=== PATIENT | male | born 1980 | race Caucasian/White ===

== ENCOUNTER 2024-10-18 07:17 | Emergency (ER) | payer OTHER, SELFPAY ==
[2024-10-18] VITALS (7 sets, daily range): BP systolic 106–127; BP diastolic 57–96; BMI 28.0
--- NOTE | 2024-10-18 07:58 | ED.GENMED ---
History of Present Illness
<Kennedi Guerrier PA-C - Last Filed: 10/18/24 11:29>
General
Chief Complaint: Back Pain
Source: patient
Exam Limitations: none
Time Seen by Provider: 10/18/24 07:33
Nursing documentation reviewed up to this point in time: agreed with
History of Present Illness
History of Present Illness:
44 y/o M no sig pmh
here with severe lumbar back pain this morning and subsequent syncope
pt says last week he tweaked his back liftingsomething; has been having lower lumbar pain with changing positino, walking
nonradiating, no numbness/tingling/weakness
taking motrin OTC
then this morning went to get out of b ed and suddenly felt severe pain in the back, screamed; went over to help him and he passed out, landing on the buttocks and also bumped his head onthe nightstand without injury
his eyes were opena nd he then was diaphoretic
he had no CP, SOB
he denies abd pain
the pain is worse with changing position/worse wiht movement; but nonradiating, normal sesnation, no urinary incontnience or perineal anesthesia
his was able to get him slowly up and to the car and was able to walk in
he took aleve [employer]
pain is moderate to severe worse with movement
no fever/chills
no h/o aortic disease
has passed out before but rarely
has low resting hr usually
Past History
<Kennedi Guerrier PA-C - Last Filed: 10/18/24 11:29>
Past History
ED Past Medical History: None
ED Past Surgical History: None
Social History
Tobacco: Non-smoker
Alcohol: Occasional
Drug: None
Personal:
Living: with family
Employment: Employed
Review of Systems
<Kennedi Guerrier PA-C - Last Filed: 10/18/24 11:29>
Review of Systems
Allergies reviewed?: Yes
All Other Systems: Not applicable
Phy Exam
<Kennedi Guerrier PA-C - Last Filed: 10/18/24 11:29>
Physical Exam
Physical Exam:
GENERAL: Alert ,ucomfortable; better with lying still; pain with movement; eyes closed during interview
HEAD: NCAT
NECK: no midline tenderness, active ROM intact, no paraspinal muscle tenderness;
CARDIAC: Regular rate and rhythm, no edema
LUNGS: Clear breath sounds bilaterally, no acute respiratory distress, no wheezes/rales/rhonchi
ABDOMEN: Soft, without focal tenderness, no r/g, no cvat, normal bowel sounds, nondistended
NEUROLOGICAL: Alert and oriented, no focal neuro deficits, CN intact, 5/5 strength, sensation intact, ambulation slight limp left leg
SKIN: Warm and dry,
MUSCULOSKELETAL: No edema, well perfused.
Patient has no tenderness to palpatino of hips and SI joints
Back: No midline tenderness, no paraspinal muscle tenderness on exam, no swelling
negative straight leg raise Bilaterally
pain with changing psoitions int he stretcher, flexion and rotation;
PSYCH: Normal and appropriate interaction.
Course
<Kennedi Guerrier PA-C - Last Filed: 10/18/24 11:29>
Orders/Labs/Results
Orders:
Orders
10/18/24 07:25
Electrocardiogram (*1) Urgent
Reason for Study: Syncope
EKG- Treatment ONCE
10/18/24 07:54
CT Angio Abd/Pelvis w/wo IV [CT Abd/pelvis Angio W/wo Iv] Urgent
Comment:
Reason For Exam: severe back pain, syncope
10/18/24 07:58
HYDROmorphone [Dilaudid] 0.5 mg IV NOW STA
10/18/24 08:00
Complete Blood Count/With Diff Urgent
Comprehensive Metabolic Panel Urgent
Troponin I Urgent
10/18/24 10:33
Ketorolac [Toradol] 30 mg IV NOW STA
10/18/24 11:18
Diazepam [Valium] 5 mg PO NOW STA
Prednisone [Deltasone] 50 mg PO NOW STA
Abnormal Lab Results
10/18/24
08:00
BUN 22 H mg/dl
(9-20)
Glucose 147 H mg/dl
(70-99)
10/18/24 08:00
10/18/24 08:00
Vital Signs
Initial and Last Documented VS:
Initial Vital Signs
Temp Pulse Resp BP Pulse Ox
36.9 C 52 18 127/96 98
10/18/24 07:22 10/18/24 07:22 10/18/24 07:22 10/18/24 07:22 10/18/24 07:22
Last Documented Vital Signs
Temp Pulse Resp BP Pulse Ox
36.9 C 51 14 109/65 98
10/18/24 07:22 10/18/24 08:00 10/18/24 08:00 10/18/24 08:00 10/18/24 07:22
<Delmar Calabrese MD - Last Filed: 10/18/24 08:38>
Orders/Labs/Results
Orders:
Orders
10/18/24 07:25
Electrocardiogram (*1) Urgent
Reason for Study: Syncope
EKG- Treatment ONCE
10/18/24 07:54
CT Angio Abd/Pelvis w/wo IV [CT Abd/pelvis Angio W/wo Iv] Urgent
Comment:
Reason For Exam: severe back pain, syncope
10/18/24 07:58
HYDROmorphone [Dilaudid] 0.5 mg IV NOW STA
10/18/24 08:00
Complete Blood Count/With Diff Urgent
Comprehensive Metabolic Panel Urgent
Troponin I Urgent
10/18/24 10:33
Ketorolac [Toradol] 30 mg IV NOW STA
10/18/24 11:18
Diazepam [Valium] 5 mg PO NOW STA
Prednisone [Deltasone] 50 mg PO NOW STA
Abnormal Lab Results
10/18/24
08:00
BUN 22 H mg/dl
(9-20)
Glucose 147 H mg/dl
(70-99)
10/18/24 08:00
10/18/24 08:00
Vital Signs
Initial and Last Documented VS:
Initial Vital Signs
Temp Pulse Resp BP Pulse Ox
36.9 C 52 18 127/96 98
10/18/24 07:22 10/18/24 07:22 10/18/24 07:22 10/18/24 07:22 10/18/24 07:22
Last Documented Vital Signs
Temp Pulse Resp BP Pulse Ox
36.9 C 51 14 109/65 98
10/18/24 07:22 10/18/24 08:00 10/18/24 08:00 10/18/24 08:00 10/18/24 07:22
<Kennedi Guerrier PA-C - Last Filed: 10/18/24 11:29>
MDM/Problems Addressed
Differential Diagnosis Includes:
lumbar MSK back pain, muscle spasm, disc herniation, AAA, dissection, vasovagal syncope
MDM/Problems Addressed:
44 y/o M with no pmh
here with lumbar back pain that started gradually after lifting last week
worse with position changes
today out of bed severe pain, felt spasm and then syncopized
pt has h/o syncope with pain before
he has low resting
ED Attending Note
<Kennedi Guerrier PA-C - Last Filed: 10/18/24 11:29>
-
Portions of this chart may have been created with voice recognition software.� Occasional wrong word or��sound alike� substitutions may have occurred due to the inherent limitations of voice recognition software.
<Delmar Calabrese MD - Last Filed: 10/18/24 08:38>
ED Attending Note
Patient seen and examined by attending physician: Yes
I performed the substantive portion of visit, reviewed & personally made and approve the management plan that is documented in note by myself or ASH.: Yes
ED Attending Note:
44-year-old male injured his back 1 week ago. However this morning sudden onset of severe low back pain associated with a syncopal episode. Very positional in nature. No distal numbness tingling or weakness. No abdominal pain chest pain
shortness of breath etc. Was able to ambulate into the ER apparently
On exam patient is nontoxic but appears uncomfortable. Warm and dry. Perfusing well. Bradycardic. Good blood pressure. Abdomen is nontender. No pulsatile masses. Good distal pulses and color. Good lower extremity strength. Good plantar
dorsiflexion of the feet. Low back pain with straight leg raising.
Impression is very likely musculoskeletal low back pain. Patient is bradycardic but with a stable blood pressure. History of bradycardia. Doubt acute vascular issue but with syncope and sudden back pain vascular etiology needs to be ruled out.
Discharge Plan
Departure
Patient with high blood pressure during this ER visit?: No
Condition: Fair
Covid-19: Not Applicable
Discharge Problem:
Acute lumbar back pain, Muscle spasm, Syncope, vasovagal
Instructions: Low Back Pain (DC), Syncope (Fainting) (DC)
Prescriptions:
New
diazepam [Valium] 5 mg tablet
5 mg PO TID PRN (Reason: muscle spasm) Qty: 12 0RF
prednisone 50 mg tablet
50 mg PO DAILY Qty: 4 0RF
No Action
Zytrec
1 tab PO DAILY AT 0700
doxycycline hyclate 100 MG capsule
100 mg PO BID Qty: 19 0RF
Rx Instructions:
patient recieved 1 pill in ED hence 19 pills.
Referrals:
Niecy Ferrari MD [Family Provider] - Follow up in 2-3 days
Activity Restrictions/Additional Instructions:
YOUR BACK PAIN IS LIKELY CAUSED BY MUSCULOSKELETAL CAUSES, LIKE MUSCLE SPASM WHICH CAUSED SEVERE PAIN CAUSING YOU TO PASS OUT
YOUR WORK UP SHOWED AN INCIDENTAL FINDING IN YOUR CAT SCAN THAT IS MORE LIKELY TO BE ARTIFACT
OTHERWISE THERE WAS NO ACUTE FINDING
TAKE TYLENOL 3 TIMES A DAY
PREDNISONE ONCE D AY STARTING TOMORROW FOR INFLAMMATION
VALIUM 5 MG 2-3 TIMES A DAY NEEDED FOR MUSCLE SPASM; THIS IS A SEDATING MEDICAITON, NO ALCOHOL OR DRIVING ON THIS MEDICATION
RETURN FOR : SEVERE PAIN, LEG WEAKNESS, LEG NUMBNESS, INCONTINENCE, FEVER, CHILLS OR ANY CONCERNS.
OTHEWRISE SEE YOUR DOCTOR
YOU MAY NEED PHYSICAL THERAPY AND AN MRI IF THIS CONTINUES
Interventions
Interventions:
*Risk Screen - Suicide Last Done: 10/18/24 07:22
*General Assessment Last Done: 10/18/24 07:22
*Neglect/Abuse Screening Last Done: 10/18/24 07:22
*ED COVID-19 Vaccine History Last Done: 10/18/24 08:12
ED- Cardiac Assessment Last Done: 10/18/24 09:00
ED-Musculoskeletal Assessment Last Done: 10/18/24 09:00
ED- Neurological Assessment Last Done: 10/18/24 09:00
Discharge Date and Time
Print Language: ANGOLAN
[2024-10-18] MEDS: DILAUDID 0.5 MG IV (08:05)
[2024-10-18 08:10] LABS: % Basophils 0.4 % (0-2); % Eosinophils 1.7 % (0-6); % Immature Granulocytes 0.3 % (0-0.5); % Lymphocytes 26.3 % (20.5-51.1); % Monocytes 5.4 % (1.7-9.3); % Neutrophils 65.9 % (42.2-75.2); Absolute Eosinophils 0.1 10^3/uL (0-0.7); Absolute Lymphocytes 1.8 10^3/uL (1.2-3.4); Absolute Monocytes 0.4 10^3/uL (0.1-0.6); Absolute Neutrophils 4.6 10^3/uL (1.4-6.5); Hematocrit 43.3 % (39.0-52.0); Hemoglobin 14.9 g/dL (13.0-18.0); Mean Corp Hgb Conc. 34.4 g/dL (33.0-37.0); Mean Corpuscular Hgb 30.3 pg (27.0-31.0); Mean Platelet Volume 8.4 fL (7.4-10.4); Nucleated Red Blood Cells % 0 % (-); Platelet Count 225 10^3/uL (130-400); Red Blood Cell Count 4.92 10^6/uL (4.70-6.10); Red Cell Dist. Width 11.9 % (11.5-14.5)
[2024-10-18 08:22] LABS: ALT (SGPT) 27 U/L (0-50); AST (SGOT) 31 U/L (17-59); Albumin 4.4 g/dl (3.5-5.0); Alkaline Phosphatase 57 U/L (38-126); Blood Urea Nitrogen 22 mg/dl (9-20); Calcium 8.8 mg/dl (8.4-10.2); Carbon Dioxide 29 mmol/L (22-30); Chloride 104 mmol/L (98-107); Estimated Creatinine Clearance 121 ml/min; Glucose 147 mg/dl (70-99); Sodium 141 mmol/L (135-145); Total Bilirubin 0.9 mg/dl (0.2-1.3); Total Protein 6.8 g/dl (6.3-8.2); eGFR > 60.00
[2024-10-18 08:32] LABS: Troponin I < 0.012 ng/ml
[2024-10-18] MEDS: TORADOL 30 MG IV (11:02)
[2024-10-18] MEDS: DELTASONE 50 MG PO (11:35)
[2024-10-18] MEDS: VALIUM 5 MG PO (11:35)
== END 2024-10-18 11:52 | disposition home or self-care (01) ==
LOC: EMR 07:17
PROVIDERS: Physician Assistant; EMERGENCY PHYSICIAN Emergency Medicine; FAMILY PHYSICIAN Emergency Medicine
DX: M54.50 Low back pain, unspecified (principal); M62.838 Other muscle spasm; R55 Syncope and collapse
CPT/HCPCS: 96374; 96375; 99284; 74174; 80053; 84484; 85025; 93005; Q9967

== ENCOUNTER 2024-12-06 17:54 | Outpatient (RCR) | payer OTHER, SELFPAY | END 2024-12-06 23:59 | disposition home or self-care (01) | LOC: RPT 17:54 | PROVIDERS: ATTENDING PHYSICIAN Orthopaedic Surgery; FAMILY PHYSICIAN Family Medicine | DX: M54.50 Low back pain, unspecified (principal); Z73.6 Limitation of activities due to disability; M62.81 Muscle weakness (generalized) | CPT/HCPCS: 97110; 97112; 97162; 97535 ==

== ENCOUNTER 2024-12-20 16:02 | Outpatient (RCR) | payer OTHER, SELFPAY | END 2024-12-20 23:59 | disposition home or self-care (01) | LOC: RPT 16:02 | PROVIDERS: ATTENDING PHYSICIAN Orthopaedic Surgery; FAMILY PHYSICIAN Family Medicine | DX: M54.50 Low back pain, unspecified (principal); Z73.6 Limitation of activities due to disability; M62.81 Muscle weakness (generalized) | CPT/HCPCS: 97110; 97112 ==